=== PATIENT | female | born 1960 | race Caucasian/White ===

== ENCOUNTER → 2018-06-08 18:23 | Emergency (ER) | payer OTHER ==
[~2018-06-08 18:23] MED LIST: Glucagon* 1 MG VIAL IM ONE; Midazolam* 1 MG/ML 10 ML VIAL (10 MG) ONE; NS 0.9% 1000 ML* 1,000 ML IV ONE; fentaNYL* 50 MCG/ML 2 ML VIAL (100 MCG VIAL) ONE
--- NOTE | 2018-06-08 20:50 | CONS ---
GASTROENTEROLOGY CONSULT REPORT: DATE OF CONSULT: 06/08/18 CONSULTING PROVIDER: ER. REASON FOR CONSULT: Food impaction. HISTORY OF PRESENT ILLNESS: Ms. Nicole is a 58-year-old woman with history of Schatzki's ring complicated by food impaction and requiring dilation in the past , who presents to the ER with recurrent food impaction. Ms. Nicole states that over 20 years ago, she had an episode of food impaction. She then had a recurrent episode of food impaction in May 2016. A piece of food was removed and a Schatzki's ring was noted. The patient underwent EGD several weeks after the food impaction in late May [address] Moses. She had balloon dilation from 18 to 20 mm performed with good effect. Mid esophageal biopsy showed mild erosive changes. Patient was started on PPI. Patient does not particularly remember this dilation nor the PPI, so she cannot speak as to the efficacy. The patient states that she has had intermittent dysphagia symptoms, although they occur infrequently. She is usually able to regurgitate up the food or help it pass down with liquids. She was eating a piece of turkey at around 5:30 today with her family when she felt that the turkey get stuck. She has been unable to tolerate her saliva. Presents to the ER for evaluation. The patient was given 1 mg of Glucagon x2 without any significant effect. She denies any other symptoms at present time. PAST MEDICAL HISTORY: History of Schatzki's ring and food impactions requiring balloon dilation in May 2016. PAST SURGICAL HISTORY: Cholecystectomy. MEDICATIONS: None. ALLERGIES: No known drug allergies. FAMILY HISTORY: No known GI or liver disease. SOCIAL HISTORY: The patient lives in [place]. 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 She drinks 1 to 2 glasses of wine few times a week. She does not smoke cigarettes or use drugs. REVIEW OF SYSTEMS: A 12-point review of systems negative except as above. PHYSICAL EXAM: Vital signs reviewed. Afebrile. Heart rate 81 to 101, blood pressure 137/78, 97% to 99% on room air. General: Well-appearing woman, sitting in bed. Occasionally spitting up some saliva into a bag. HEENT: Mucous membranes moist. Cardiovascular: Regular rate and rhythm. Pulmonary: Lungs clear to auscultation. Abdomen: Soft, nontender, nondistended. Extremities: Warm and well perfused. No edema. Neuro: A and O x3. Skin: No jaundice. DIAGNOSTIC STUDIES/LAB DATA: Labs: None relevant. Studies: Reviewed prior endoscopy reports from May 2016. Schatzki's ring described in the past. IMPRESSION: Ms. Kirstin Nicole is a 58-year-old woman with history of Schatzki' s ring and recurrent food impactions, status post dilation in May 2016, who presents with recurrent food impaction after eating a piece of turkey at 5: 30 PM. Some difficulty managing secretions. No improvement despite Glucagon x2. - NPO. - We will plan for EGD for removal of food impaction. Thank you very much for this consult. [id number]/[facility] #: [id number] MARISOL
--- NOTE | 2018-06-08 22:43 | ED ---
Throat Pain/Nasal Congestion - HPI Summary HPI Summary: Patient complains of food bolus in her esophagus likely turkey from dinner this evening. Denies any other symptoms, pain, injury. Not able to swallow fluids or her own saliva. Patient has history of food bolus stuck in esophagus requiring endoscopy 3. Denies pain, fever, cough, sore throat, CP, SOB, N/V/D , abdominal pain, change in urine, change in BM. Medical history is none. - History of Current Complaint Chief Complaint: EDForeignBodyEsophag Time Seen by Provider: 06/08/18 18:36 Hx Obtained From: Patient Onset/Duration: Sudden Onset Severity: Mild Associated Signs And Symptoms: Positive: FB Sensation Cough: None - Allergies/Home Medications Allergies/Adverse Reactions: Allergies Allergy/AdvReac Type Severity Reaction Status Date / Time No Known Allergies Allergy Verified 08/12/15 09:55 PMH/Surg Hx/FS Hx/Imm Hx Endocrine/Hematology History: Denies: Hx Diabetes Cardiovascular History: Denies: Hx Hypertension, Hx Pacemaker/ICD History: Denies: Hx Renal Disease Sensory History: Denies: Hx Hearing Aid Psychiatric History: Denies: Hx Panic Disorder - Surgical History Surgery Procedure, Year, and Place: ALMAZ BREAST IMPLANTS-10 YRS; GALLBLADDER- 2004. , NASAL SURGERY Infectious Disease History: No Infectious Disease History: Denies: Traveled Outside the [place] in Last 30 Days - Family History Known Family History: Positive: None - Reviewed - Social History Alcohol Use: None Hx Substance Use: No Substance Use Type: Reports: None Smoking Status (MU): Never Smoked Tobacco Review of Systems Constitutional: Negative Eyes: Negative Positive: Other Cardiovascular: Negative Respiratory: Negative Gastrointestinal: Negative Genitourinary: Negative Musculoskeletal: Negative Skin: Negative Neurological: Negative Psychological: Normal All Other Systems Reviewed And Are Negative: Yes Physical Exam Triage Information Reviewed: Yes Vital Signs On Initial Exam: Initial Vitals Temp Pulse Resp BP Pulse Ox 97.4 F 86 20 137/78 97 06/08/18 18:28 06/08/18 18:28 06/08/18 18:28 06/08/18 18:28 06/08/18 18:28 Vital Signs Reviewed: Yes Appearance: Positive: Well-Appearing Skin: Positive: Warm Head/Face: Positive: Normal Head/Face Inspection Eyes: Positive: Normal ENT: Positive: Normal ENT inspection Neck: Positive: Supple Respiratory/Lung Sounds: Positive: Clear to Auscultation Cardiovascular: Positive: Normal Abdomen Description: Positive: Nontender Musculoskeletal: Positive: Normal Neurological: Positive: Normal Psychiatric: Positive: Normal AVPU Assessment: Alert - [place] Coma Scale Best Eye Response: 4 - Spontaneous Best Motor Response: 6 - Obeys Commands Best Verbal Response: 5 - Oriented Coma Scale Total: 15 Diagnostics - Vital Signs Vital Signs Temp Pulse Resp BP Pulse Ox 06/08/18 22:20 100 21 109/72 94 06/08/18 22:15 101 20 117/75 95 06/08/18 22:10 96 19 125/78 97 06/08/18 22:05 104 21 112/68 100 06/08/18 22:00 107 23 122/66 100 06/08/18 21:50 125 16 141/99 98 06/08/18 21:46 108 19 122/55 99 06/08/18 21:40 107 26 149/68 98 06/08/18 21:36 115 24 142/62 98 06/08/18 21:31 120 24 119/64 98 06/08/18 21:25 117 20 115/63 100 06/08/18 21:21 90 20 114/56 96 06/08/18 21:16 22 168/79 06/08/18 21:10 122 20 121/71 100 06/08/18 21:05 114 20 124/74 99 06/08/18 21:01 131 16 142/70 98 06/08/18 21:00 155 25 99 06/08/18 20:55 99 21 112/55 97 06/08/18 20:50 102 13 113/58 98 06/08/18 20:46 101 15 123/58 99 06/08/18 20:45 97 18 110/68 100 06/08/18 20:40 98 22 110/86 99 06/08/18 20:13 96 28 133/76 99 06/08/18 20:00 86 21 96 06/08/18 19:43 91 14 137/77 96 06/08/18 19:00 82 21 97 06/08/18 18:43 99 18 150/82 99 06/08/18 18:28 97.4 F 86 20 137/78 97 - Laboratory Lab Statement: Any lab studies that have been ordered have been reviewed, and results considered in the medical decision making process. EENT Course/Dx - Course Course Of Treatment: Patient complains of food bolus in her esophagus likely turkey from dinner this evening. Denies any other symptoms, pain, injury. Not able to swallow fluids or her own saliva. Patient has history of food bolus stuck in esophagus requiring endoscopy 3. Denies pain, fever, cough, sore throat, CP, SOB, N/V/D, abdominal pain, change in urine, change in BM. Medical history is none. Fall signs within normal limits. Physical exam unremarkable. Bolus failed to resolve with glucagon 1 mg IM 2. Food bolus removal performed by GI doctor Chava. - Diagnoses Provider Diagnoses: Foreign body in esophagus Discharge - Sign-Out/Discharge Documenting (check all that apply): Patient Departure - Discharge Plan Condition: Stable Disposition: HOME Prescriptions: Omeprazole 40 mg PO DAILY 30 Days #30 capsule. Patient Education Materials: Procedural Sedation (ED), Upper Endoscopy (DC) Referrals: Fay Werner MD [Primary Care Provider] - Tamika Larsen MD [Medical Doctor] - Additional Instructions: Take omeprazole 40 mg daily. Follow-up with Dr. Wang Resendiz. Return to the ED for any new or worsening symptoms - Billing Disposition and Condition Condition: STABLE Disposition: Home
[2018-06-09 01:07] VITALS: BP 101/62
--- NOTE | 2018-06-09 04:53 | PRO ---
DATE OF PROCEDURE: 06/08/18 - EMERGENCY DEPT PROCEDURE: EGD. INDICATION: Food impaction. MEDICATIONS GIVEN: Midazolam 16 mg IV, Fentanyl 150 mcg IV. DESCRIPTION OF PROCEDURE: Full disclosure of risks was reviewed with the patient as detailed on the consent form. The patient was placed in the left lateral decubitus position and monitored with continuous pulse oximetry, interval blood pressure monitoring, and direct observation. A bite block was placed between the teeth. An Olympus gastroscope was then inserted into the patient's mouth and advanced down the esophagus where food impaction was encountered. Findings are detailed below. FINDINGS: Esophagus was intubated and noted to have mild trachealization. In the distal esophagus, there was a large food impaction encountered. Large biopsy forceps and rat tooth forceps, both pediatric and adult sizes, were used to remove portions of the food in piecemeal. After multiple passes with the scope and removal of portions of the food, the food bolus was eventually able to push into the stomach without any resistance. On reassessment of the distal esophagus, there was a Schatzki's ring. No significant inflammation present at the ring. Several biopsy bites were taken circumferentially to disrupt the Schatzki ring. Small hiatal hernia present. There was a moderate amount of liquid and food in the stomach. Duodenum not examined during this exam. The scope was then withdrawn from the patient. The patient tolerated the procedure well and was recovered in the ER. IMPRESSION: 1. Food impaction, resolved. 2. Schatzki's ring. 3. Hiatal hernia. RECOMMENDATIONS: 1. Start PPI once daily. 2. We will repeat scope in 3 to 4 weeks to reassess esophagus. We will take biopsies at that point of proximal and distal esophagus to rule out eosinophilic esophagitis. Will also likely perform empiric dilation of Schatzki' s ring. In the interim, the patient was encouraged to take smaller bites and chew her food carefully. Recommendations were reviewed with the patient and the patient's . Thank you very much for this consult. [id number]/[facility] #: [id number] MARISOL
== END | disposition home or self-care (01) ==
LOC: ED 18:23
DX: T18.128A Food in esophagus causing other injury, initial encounter (principal); X58.XXXA Exposure to other specified factors, initial encounter; Y92.9 Unspecified place or not applicable
CPT/HCPCS: 96372; 99156; 99157; 99285; J1610; J2250; J3010